=== PATIENT | female | born 1955 | race Caucasian/White ===

== ENCOUNTER → 2016-12-29 | Outpatient (CLI) | payer BC ==
[~2016-12-29] MED LIST: CPR500 PO; PHEN-876 PO
--- NOTE | 2016-12-30 12:17 | MAMMOGRAPHY REPORT ---
BILATERAL DIGITAL SCREENING MAMMOGRAM TOMOSYNTHESIS WITH CAD: 12/29/2016 CLINICAL HISTORY: Routine screening. Patient has no complaints. TECHNIQUE: Bilateral breast tomosynthesis in addition to standard 2D mammography was performed. Curr ent study was also evaluated with a Computer Aided Detection (CAD) system. COMPARISON: Comparison is made to exams dated: 12/25/2015 mammogram, 12/21/2014 mammogram, 12/15/2012 mammogram, 12/20/2013 mammogram, 12/10/2010 mammogram, and 12/06/2009 mammogram - [facility]. BREAST COMPOSITION: There are scattered areas of fibroglandular density in both breasts. FINDINGS: There is possible architectural distortion in the anterior right breast, along the internal grinding machine operator ior nipple line on the CC view for which additional spot compression tomosynthesis views and possibl y ultrasound is recommended. No other suspicious mass, architectural distortion or cluster of microcalcifications is seen bilater ally. IMPRESSION: ACR BI-RADS CATEGORY 0: INCOMPLETE EVALUATION: NEED ADDITIONAL IMAGING EVALUATION The possible architectural distortion in the anterior right breast needs additional evaluation. The patient will be called to schedule an appointment. Approximately 10% of breast cancers are not detected with mammography. A negative mammographic repor t should not delay biopsy if a clinically suggestive mass is present. Ninoska Brown M.D. ay/:12/29/2016 21:45:44 Engineering Program Manager: Susan POSADAS)(Linda), [facility] letter sent: Addl Imaging 0 BI-RADS Code: ACR BI-RADS Category 0: Incomplete Evaluation: Need Additional Imaging Evaluation
== END | disposition home or self-care (01) ==
LOC: C.MAMM 07:36
PROVIDERS: ATTEND Internal Medicine
DX: Z12.31 Encounter for screening mammogram for malignant neoplasm of breast (principal); R92.8 Other abnormal and inconclusive findings on diagnostic imaging of breast

== ENCOUNTER → 2017-01-06 | Outpatient (CLI) | payer BC ==
--- NOTE | 2017-01-06 16:46 | MAMMOGRAPHY REPORT ---
UNILATERAL RIGHT DIGITAL DIAGNOSTIC MAMMOGRAM TOMOSYNTHESIS AND TARGETED RIGHT ULTRASOUND: 01/06/2017 CLINICAL HISTORY: 61-year-old on called back from screening mammography for possible architectural d istortion in the anterior subareolar right breast, only seen on the CC view. No family history of b reast cancer. TECHNIQUE: Spot compression right CC and MLO 2-D digital and tomosynthesis images were obtained. COMPARISON: Comparison is made to exams dated: 12/29/2016 mammogram, 12/25/2015 mammogram, 12/21/2014 m ammogram, 12/20/2013 mammogram, 12/15/2012 mammogram, and 12/12/2011 mammogram - [facility]. BREAST COMPOSITION: There are scattered areas of fibroglandular density in the right breast. FINDINGS: The spot compression right CC 2-D view appears very similar in pattern to multiple prior f ull-field mammograms. The tomosynthesis images of the spot compression 2-D view still demonstrate q uestionable distortion (slices [id number]), although multiple coursing blood vessels overlie the area of concern which may be contributing to the distorted appearance. However, there is no corresponding d istortion identified on the spot compression or full-field MLO views. Further evaluation with ultra sound was performed. Real-time high-resolution sonographic evaluation was performed throughout the right breast 11:00, 12 :00, 1:00, retroareolar, 5:00, 6:00 and 7:00 axes. Normal fibroglandular tissue is seen without a d iscrete solid or cystic mass. No subtle area of architectural distortion is seen in real-time scann ing. IMPRESSION: ACR-BI-RADS CATEGORY 3: PROBABLY BENIGN, TARGETED ULTRASOUND ACR-BI-RADS CATEGORY 3: SD OBABLY BENIGN There is near complete effacement of the questionable architectural distortion in the anterior right breast, only seen on the CC view. No suspicious sonographic correlate or subtle area of distortion was appreciated. Although this most likely represents normal overlapping fibroglandular tissue and coursing vessels, a short interval follow-up right diagnostic mammogram including tomosynthesis felix ges and possible repeat ultrasound is recommended to ensure stability in 6 months. These results and recommendations were discussed with the patient at the time of the exam. Approximately 10% of breast cancers are not detected with mammography. A negative mammographic repor t should not delay biopsy if a clinically suggestive mass is present. Ninoska Brown M.D. ay/:01/06/2017 15:19:15 Bullet Swaging Machine Adjuster: Fabian ADAMS(Naz)(M), [facility] letter sent: Follow Up Recommended 3 BI-RADS Code: ACR-BI-RADS Category 3: Probably Benign Ultrasound BI-RADS: ACR-BI-RADS Category 3: P robably Benign
== END | disposition home or self-care (01) ==
LOC: C.MAMM 11:18
PROVIDERS: ATTEND Internal Medicine
DX: N64.9 Disorder of breast, unspecified (principal)

== ENCOUNTER → 2017-03-24 | Outpatient (CLI) | payer BC ==
[2017-03-24 12:49] LABS: ESTIMATED AVERAGE GLUCOSE 108 mg/dl; HA1C FLAG Normal (Normal)
[2017-03-24 14:18] LABS: ALT/SGPT 25 U/L (12-78); AST/SGOT 20 U/L (15-37); BLOOD UREA NITROGEN 16 mg/dl (7-18); CARBON DIOXIDE 30 mmol/L (21-32); CHLORIDE 109 mmol/L (98-107); CREATININE 0.94 mg/dl (0.60-1.20); GLUCOSE 94 mg/dl (70-99); POTASSIUM 4.4 mmol/L (3.5-5.1); SODIUM 143 mmol/L (136-145)
[2017-03-24 14:21] LABS: ALB/GLOB RATIO 1.4 (0.9-2); ALKALINE PHOSPHATASE 39 U/L (45-117); CALCIUM 10.1 mg/dl (8.5-10.1)
== END | disposition home or self-care (01) ==
LOC: C.LABBFT 08:02
PROVIDERS: ATTEND Internal Medicine
DX: I10 Essential (primary) hypertension (principal); R73.01 Impaired fasting glucose; E83.52 Hypercalcemia

== ENCOUNTER → 2017-04-16 | Outpatient (CLI) | payer BC | END | disposition home or self-care (01) | LOC: C.MAMM 11:09 | PROVIDERS: ATTEND Internal Medicine | DX: M81.0 Age-related osteoporosis without current pathological fracture (principal) ==

== ENCOUNTER → 2017-07-08 | Outpatient (CLI) | payer BC ==
--- NOTE | 2017-07-08 13:39 | MAMMOGRAPHY REPORT ---
UNILATERAL RIGHT DIGITAL DIAGNOSTIC MAMMOGRAM TOMOSYNTHESIS WITH CAD: 07/08/2017 CLINICAL HISTORY: 61-year-old woman presents for follow-up in the right breast. She was initially ca llback for a possible area of architectural distortion in the anterior retroareolar right breast on t he CC view, which effaced with additional supplemental mammographic/tomographic images and no suspici ous sonographic correlate was seen. TECHNIQUE: Right breast tomosynthesis in addition to standard 2D mammography was performed. Current gertrude fierro was also evaluated with a Computer Aided Detection (CAD) system. COMPARISON: Comparison is made to exams dated: 01/06/2017 ultrasound, 01/06/2017 mammogram, 12/29/2016 m ammogram, 12/25/2015 mammogram, 12/21/2014 mammogram, and 12/20/2013 mammogram - [facility]. BREAST COMPOSITION: There are scattered areas of fibroglandular density in the right breast. FINDINGS: The questionable architectural distortion in the anterior retroareolar right breast on the CC view is less prominent comparing to the prior mammogram dated 12/29/2016, and there is no persiste nt architectural distortion on the corresponding tomosynthesis images. Overall, no suspicious mass, architectural distortion or cluster of microcalcifications is seen in the right breast. Recommend re turn to annual screening schedule, due in December 2017. IMPRESSION: ACR BI-RADS CATEGORY 2: BENIGN There is no persistent architectural distortion in the anterior right breast, confirming normal overl apping tissue and vessels. There is no mammographic evidence of malignancy. Return to annual mammogr am screening schedule is recommended, due in December 2017. The patient has been verbally notified of t he results. Approximately 10% of breast cancers are not detected with mammography. A negative mammographic report should not delay biopsy if a clinically suggestive mass is present. Ninoska Brown M.D. ay/:07/08/2017 08:35:42 Architectural Superintendent: Marianna POSADAS)(M), [facility] letter sent: Normal 1/2 BI-RADS Code: ACR BI-RADS Category 2: Benign
== END | disposition home or self-care (01) ==
LOC: C.MAMM 07:52
PROVIDERS: ATTEND Internal Medicine
DX: Z09 Encounter for follow-up examination after completed treatment for conditions other than malignant neoplasm (principal); N64.9 Disorder of breast, unspecified

== ENCOUNTER → 2017-12-31 | Outpatient (CLI) | payer BC ==
--- NOTE | 2017-12-31 14:43 | MAMMOGRAPHY REPORT ---
BILATERAL DIGITAL SCREENING MAMMOGRAM TOMOSYNTHESIS WITH CAD: 12/31/2017 CLINICAL HISTORY: Routine screening. Patient has no complaints. TECHNIQUE: Breast tomosynthesis in addition to standard 2D mammography was performed. Current study was also evaluated with a Computer Aided Detection (CAD) system. COMPARISON: Comparison is made to exams dated: 07/08/2017 mammogram, 01/06/2017 ultrasound, 01/06/2017 mammogram, 12/29/2016 mammogram, 12/25/2015 mammogram, and 12/21/2014 mammogram - [facility]. BREAST COMPOSITION: There are scattered areas of fibroglandular density in both breasts. FINDINGS: No suspicious masses, calcifications, or areas of architectural distortion are noted in ei ther breast. There has been no significant interval change compared to prior exams. IMPRESSION: ACR BI-RADS CATEGORY 1: NEGATIVE There is no mammographic evidence of malignancy. A 1 year screening mammogram is recommended. The pa tient will receive written notification of the results. Approximately 10% of breast cancers are not detected with mammography. A negative mammographic report should not delay biopsy if a clinically suggestive mass is present. Suzi Woo M.D. /:12/31/2017 08:09:24 Fund Controller: Marianna Schmidt, [facility] letter sent: Normal 1/2 BI-RADS Code: ACR BI-RADS Category 1: Negative
== END | disposition home or self-care (01) ==
LOC: C.MAMM 07:42
PROVIDERS: ATTEND Internal Medicine
DX: Z12.31 Encounter for screening mammogram for malignant neoplasm of breast (principal)

== ENCOUNTER → 2018-04-15 | Outpatient (CLI) | payer BC ==
[2018-04-15 13:11] LABS: HEMOGLOBIN A1C 5.4 % (4.5-5.6)
[2018-04-15 13:39] LABS: ALKALINE PHOSPHATASE 41 U/L (45-117); ALT/SGPT 19 U/L (12-78); AST/SGOT 17 U/L (15-37); BLOOD UREA NITROGEN 13 mg/dl (7-18); CALCIUM 9.5 mg/dl (8.5-10.1); CARBON DIOXIDE 27 mmol/L (21-32); CHOLESTEROL 229 mg/dl (0-200); CREATININE 1.05 mg/dl (0.60-1.20); GLUCOSE 88 mg/dl (70-99); LDL CHOLESTEROL CALCULATED 144 mg/dl; POTASSIUM 4.3 mmol/L (3.5-5.1); SODIUM 138 mmol/L (136-145); TOTAL PROTEIN 6.9 gm/dl (6.4-8.2)
== END | disposition home or self-care (01) ==
LOC: C.LABBFT 08:18
PROVIDERS: ATTEND Internal Medicine
DX: Z00.00 Encounter for general adult medical examination without abnormal findings (principal); I10 Essential (primary) hypertension; M81.0 Age-related osteoporosis without current pathological fracture; R73.01 Impaired fasting glucose; Z12.11 Encounter for screening for malignant neoplasm of colon; E55.9 Vitamin D deficiency, unspecified